=== PATIENT | female | born 1965 ===

== ENCOUNTER 2023-07-02 13:11 | Outpatient (AMB) | payer BC, SELFPAY ==
[2023-07-02 13:12] VITALS: BP 122/86; BMI 23.6
--- NOTE | 2023-07-02 13:12 | A.OFFPC_ITS ---
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 Care Specialist Required: No Allergies No Known Allergies Allergy (Verified 07/02/23 13:12) Medication List - Last Reconciled 07/02/23 by Adi Keating MD calcium carbonate (Calcium) 600 mg PO DAILY guselkumab (Tremfya) 100 mg subcut Q8W multivitamin 1 tab PO DAILY paroxetine HCl 40 mg PO DAILY Tobacco use date assessed: 07/02/23 Dental Screening Dental Screen Date: 07/02/23 Did you have a dental visit in the last 12 months?: Yes Did you have a dental problem in the last 6 months where you did not have access to dental care?: No Was dental information given to patient?: Patient has dentist HPI 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 Patient is requesting physical exam. occ lightheaded, occ sob, intermittent chest pain- 6 months ache - lasting day. worse on stress- , no problem with walking or activity but does get sob on stairs, no radiation , occ heart burn, , [facility] declined any blood work for now. [facility] Surgical History (Updated 07/02/23 @ 13:26 by Adi Keating MD) S/P tonsillectomy Previous section Family History (Updated 07/02/23 @ 13:26 by Adi Keating MD) Brother Heart attack Father Heart attack Social History (Updated 07/02/23 @ 13:30 by Adi Keating MD) Housing: Apartment Alcohol intake: current Comment: QD 3-6 drinks a day Patient Tobacco Use Status: Never used Tobacco service: No Current occupational status: employed Cognitive needs: No Hearing needs: No Vision needs: No Questionnaire PHQ-9 Over the last 2 weeks, how often have you been bothered by any of the following problems? 1. Little interest or pleasure in doing things: several days 2. Feeling down, depressed, or hopeless: several days 3. Trouble falling or staying asleep, or sleeping too much: several days 4. Feeling tired or having little energy: several days 5. Poor appetite or overeating: not at all 6. Feeling bad about yourself - or that you are a failure or have let yourself or your family down: several days 7. Trouble concentrating on things, such as reading the newspaper or watching television: several days 8. Moving or speaking so slowly that other people could have noticed. Or the opposite - being so fidgety or restless that you have been moving around a lot more than usual: not at all 9. Thoughts that you would be better off or of hurting yourself in some way: not at all Total score: 6 Depression Screening Interpretation: Positive Depression Screening Done: Yes Source: Developed by Drs. Gamaliel Ahmadi, Christina Emanuel, Stephen Woodard and colleagues, with an educational rashaun from [employer]. Thrive Questionnaire Date Thrive assessed: 07/02/23 I am a: Patient What is your living situation today?: I have a steady place to live Within the past 12 months, did the food you bought not last and you didn't have the money to get more?: Never true Within the past 12 months, did you worry whether your food would run out before you got money to buy more?: Never true Do you have trouble paying for medicines?: No Do you have trouble getting transportation to medical appointments?: No Do you have trouble paying your heating and electricity bill?: No Do you have trouble taking care of your child, family member or friend?: No Do you have trouble with day-to-day activities such as bathing, preparing meals, shopping, managing finances, etc.?: No Are you currently unemployed and looking for a job?: No Are you interested in more education?: No AUDIT C Alcohol Use Questionnaire (AUDIT-C) 1. How often do you have a drink containing alcohol?: 4 or more times a week 2. How many drinks containing alcohol do you have on a typical day when you are drinking?: 1 or 2 3. How often do you have six or more drinks on one occasion?: Never Total Score: 4 MERY-7 AMB Questionnaire MERY-7 Date MERY - 7 assessed: 07/02/23 Feeling nervous, anxious, or on edge: 1 = Several days Not being able to stop or control worryin = Several days Worrying too much about different things: 1 = Several days Trouble relaxin = Several days Being so restless that it is hard to sit still: 0 = Not at all Becoming easily annoyed or irritable: 0 = Not at all Feeling afraid as if something awful might happen: 0 = Not at all Total MERY-7 score (0-4 normal; 5-9 mild; 10-14 moderate; 15-21 severe): 4 Source: Developed by Drs. Gamaliel Ahmadi, Christina Emanuel, Stephen Woodard and colleagues, with an educational rashaun from [employer]. Review of Systems Const Denies poor appetite and Denies weakness Eyes Denies no additional complaints ENT Reports Normal hearing present, Denies dizziness, Denies nasal congestion, Denies tinnitus and Denies sore throat Card Denies chest pain, Denies syncope, Denies rapid heart rate and Denies dyspnea Resp Denies cough and Denies dyspnea GI Denies change in stool character, Reports constipation, Denies diarrhea, Denies nausea and Denies vomiting Denies urinary frequency, Denies difficulty voiding and Denies dysuria Neuro Reports Normal hearing present, Denies confusion, Denies dizziness, Denies syncope and Denies weakness Psych Denies confusion Physical exam (Primary Care) Vital Signs: Last Vital Signs BP 122/86 07/02/23 13:12 Oxygen Delivery Method Room Air 07/02/23 13:12 BMI result Body Mass Index 23.6 Tobacco/Smoking Status: Tobacco use Status Tobacco use date assessed 07/02/23 07/02/23 13:13 Patient Tobacco Use Status Never used Tobacco 07/02/23 13:30 PHQ-9: PHQ-9 Score PHQ-9: Total score 6 07/02/23 18:34 Depression Screening Interpretation: Positive Thrive Assessment: Date of Thrive Assessment Date Thrive assessed 07/02/23 07/02/23 13:13 Const General: No confusion Orientation/consciousness: No confusion HENMT Head: Yes normocephalic Ears: external ears normal and TM's normal bilaterally Face and sinus: Yes normal facial exam Mouth: moist mucous membranes Throat: Yes tonsils normal Eyes Conjunctivae: conjunctivae normal Pupils: Equal, round and reactive pupils present and Pupil accommodation reflex normal Direct Ophthalmoscopy: normal light reflex Neck Neck: No lymphadenopathy Thyroid: Thyroid normal Chest Chest palpation & inspection: normal inspection of the chest Resp Effort & Inspection: normal respiratory effort and no audible wheezes Auscultation: clear to auscultation bilaterally, no crackles, no wheezes and lung sounds not diminished Cardio Rate: regular rate Rhythm: regular rhythm Peripheral pulses: radial pulses present and dorsalis pedis present GI Palpation (GI): no masses Auscultation: normal bowel sounds and normoactive bowel sounds Rectal Exam - Female: deferred Skin General skin exam: no rashes or lesions noted Rashes: no rashes Neuro General: No confusion Cranial nerves: Yes Equal, round and reactive pupils present and Yes Normal hearing present Cognition (Neuro): normal cognition Gait exam (Neuro): Normal gait present Motor exam (neuro): 5/5 motor strength present throughout Deep tendon reflexes (DTR's): Right brachioradialis reflex intensity grade: 2+, Left brachioradialis reflex intensity grade: 2+, Right patellar reflex intensity grade: 2+ and Left patellar reflex intensity grade: 2+ Extrem General: No edema Assessment and Plan Assessment & Plan (1) Annual physical exam: Code(s): Z00.00 - Encounter for general adult medical examination without abnormal findings (2) Generalized anxiety disorder: Code(s): F41.1 - Generalized anxiety disorder Plan: Continue with present medication and will refer for counseling (3) Psoriasis: Comment: Sunitha Code(s): L40.9 - Psoriasis, unspecified Plan: Patient follows up with Dermatology (4) Irritable bowel syndrome: Comment: diarrhea Code(s): K58.9 - Irritable bowel syndrome without diarrhea Plan: Keep well hydrated, fiber important (5) Breast cancer screening by mammogram: Code(s): Z12.31 - Encounter for screening mammogram for malignant neoplasm of breast Plan: Mammogram requested (6) Colon cancer screening: Code(s): Z12.11 - Encounter for screening for malignant neoplasm of colon Plan: Cologuard requested (7) Chest pain: Code(s): R07.9 - Chest pain, unspecified Plan: Because of the family history will work up the patient. Orders: Orders MM tomosynthesis screening BI Today Z12.31 - Encounter for screening mammogram for malignant neoplasm of breast CA stress test Today R07.9 - Chest pain, unspecified XR chest 2V Today R07.9 - Chest pain, unspecified ECG 12 lead EKG Today R07.9 - Chest pain, unspecified Referrals Psychiatry Referral F41.1 - Generalized anxiety disorder Cologuard Test Z12.11 - Encounter for screening for malignant neoplasm of colon Medications: New paroxetine HCl 40 mg PO DAILY 90 tabs 1RF F41.1 - Generalized anxiety disorder Coding Level of Care Code New Pt Prev Care 40-64y(48568) Diagnoses Annual physical exam Z00.00 Generalized anxiety disorder F41.1 Psoriasis L40.9 Irritable bowel syndrome K58.9 Breast cancer screening by mammogram Z12.31 Colon cancer screening Z12.11 Chest pain R07.9
== END 2023-07-02 13:49 | disposition home or self-care (01) ==
PROVIDERS: PCP Nurse Practitioner Family; Visit Provider Internal Medicine
DX: Z00.00 Encounter for general adult medical examination without abnormal findings (principal); F41.1 Generalized anxiety disorder; L40.9 Psoriasis, unspecified; K58.9 Irritable bowel syndrome, unspecified; Z12.31 Encounter for screening mammogram for malignant neoplasm of breast; Z12.11 Encounter for screening for malignant neoplasm of colon; R07.9 Chest pain, unspecified
CPT/HCPCS: 99386

== ENCOUNTER → 2023-08-17 08:30 | Outpatient (REF) | payer BC, SELFPAY ==
--- NOTE | 2023-08-17 08:36 | ECG_ITS ---
Test Reason : cp Blood Pressure : / mmHG Vent. Rate : 063 BPM Atrial Rate : 063 BPM P-R Int : 144 ms QRS Dur : 078 ms QT Int : 412 ms P-R-T Axes : 043 022 023 degrees QTc Int : 421 ms Normal sinus rhythm Normal ECG No previous ECGs available Referred By: Adi Keating Electronically Signed By:Jaquan Richard
--- NOTE | 2023-08-17 08:36 | CA_ITS ---
Acquisition Time: 2023-08-17 09:24:42 Total Exercise Time: 00:08:44 Test Indications: CP, SOB Medications: SEE H Protocol: JABIER Max HR: 139 BPM 86% of Pred: 161 BPM Max BP: 166/070 mmHG Max Work Load: 10.1 METS Exercise stress test exercise 8 min 44 sec of Jabier protocol achieving 86% MPHR, with mild to moderate SOB, 3/10 chest ache, without arrhythmias, with normotensive response to exercise, without EKG chnages. Chest ache resolved withj rest. Test reviewed with Dr. Richard Referred By: Adi Keating Overread By: Mervat Bonilla
== END ==
LOC: HO.CARD 08:30
PROVIDERS: PCP Internal Medicine; Visit Provider Internal Medicine
DX: R07.9 Chest pain, unspecified (principal)
CPT/HCPCS: 93005; 93017

== ENCOUNTER → 2023-08-17 08:36 | Outpatient (BNV) | payer BC, SELFPAY | PROVIDERS: PCP Internal Medicine; Visit Provider Nurse Practitioner | DX: R07.9 Chest pain, unspecified (principal); R06.02 Shortness of breath | CPT/HCPCS: 93010; 93016; 93018 ==

== ENCOUNTER 2023-09-28 17:24 | Outpatient (AMB) | payer BC, SELFPAY ==
[2023-09-28 17:28] VITALS: BP 152/90; BMI 23.9
--- NOTE | 2023-09-28 17:28 | MHC.PC.OV ---
Vital Signs 09/28/23 17:28 Height 5 ft 3 in Weight 135 lb BMI 23.9 BP 152/90 H Blood Pressure Location Lt brachial Position Sitting Intake Visit Reasons: 3 Month F/U Intake Note: Patient here for a 3 month follow up Disaster Recovery Analyst Required: No Accompanied by: Self / Same As Patient Allergies No Known Allergies Allergy (Verified 09/28/23 17:30) Tobacco use date assessed: 09/28/23 Dental Screening Dental Screen Date: 09/28/23 Did you have a dental visit in the last 12 months?: Yes Did you have a dental problem in the last 6 months where you did not have access to dental care?: No Was dental information given to patient?: Patient has dentist HPI 3 Month F/U HPI Details 58-year-old female with a history of generalized anxiety disorder psoriasis irritable bowel syndrome last seen in June 2023. Patient complained of chest pain and workup was requested. Meanwhile Cologuard as well as mammogram requested also. ECG was normal and stress test without arrhythmias with normotensive response to exercise without EKG changes. Patient has plans of going to [place] and has bought a house there already and planned summer move. Otherwise patient has been doing fine with no nausea no vomiting no chest pains no shortness a breath no bowel bladder symptoms. [facility] Surgical History (Updated 07/02/23 @ 13:26 by Aid Keating MD) S/P tonsillectomy Previous section Family History (Updated 09/28/23 @ 17:31 by Jaleesa Graham Rosanne) Brother Heart attack Father Heart attack Social History (Updated 07/02/23 @ 13:30 by Adi Keating MD) Housing: Apartment Alcohol intake: current Comment: QD 3-6 drinks a day Patient Tobacco Use Status: Never used Tobacco service: No Current occupational status: employed Cognitive needs: No Hearing needs: No Vision needs: No Questionnaire PHQ-9 Over the last 2 weeks, how often have you been bothered by any of the following problems? 1. Little interest or pleasure in doing things: not at all 2. Feeling down, depressed, or hopeless: not at all 3. Trouble falling or staying asleep, or sleeping too much: not at all 4. Feeling tired or having little energy: not at all 5. Poor appetite or overeating: not at all 6. Feeling bad about yourself - or that you are a failure or have let yourself or your family down: not at all 7. Trouble concentrating on things, such as reading the newspaper or watching television: not at all 8. Moving or speaking so slowly that other people could have noticed. Or the opposite - being so fidgety or restless that you have been moving around a lot more than usual: not at all 9. Thoughts that you would be better off or of hurting yourself in some way: not at all Total score: 0 Source: Developed by Drs. Gamaliel Ahmadi, Christina Emanuel, Stephen Woodard and colleagues, with an educational rashaun from [employer]. Thrive Questionnaire Date Thrive assessed: 09/28/23 I am a: Patient What is your living situation today?: I have a steady place to live Within the past 12 months, did the food you bought not last and you didn't have the money to get more?: Never true Within the past 12 months, did you worry whether your food would run out before you got money to buy more?: Never true Do you have trouble paying for medicines?: No Do you have trouble getting transportation to medical appointments?: No Do you have trouble paying your heating and electricity bill?: No Do you have trouble taking care of your child, family member or friend?: No Do you have trouble with day-to-day activities such as bathing, preparing meals, shopping, managing finances, etc.?: No Are you currently unemployed and looking for a job?: No Are you interested in more education?: No Please select the resources that you would like help with: None Currently or been in a relationship where the following occur: no concerns reported THRIVE Score: 0 AUDIT C Alcohol Use Questionnaire (AUDIT-C) 1. How often do you have a drink containing alcohol?: 4 or more times a week 2. How many drinks containing alcohol do you have on a typical day when you are drinking?: 1 or 2 3. How often do you have six or more drinks on one occasion?: Never Total Score: 4 MERY-7 AMB Questionnaire MERY-7 Date MERY - 7 assessed: 09/28/23 Feeling nervous, anxious, or on edge: 1 = Several days Not being able to stop or control worryin = Not at all Worrying too much about different things: 1 = Several days Trouble relaxin = Not at all Being so restless that it is hard to sit still: 0 = Not at all Becoming easily annoyed or irritable: 0 = Not at all Feeling afraid as if something awful might happen: 0 = Not at all Total MERY-7 score (0-4 normal; 5-9 mild; 10-14 moderate; 15-21 severe): 2 Source: Developed by Drs. Gamaliel Ahmadi, Christina Emanuel, Stephen Woodard and colleagues, with an educational rashaun from [employer]. Physical exam (Primary Care) BMI result Body Mass Index 23.9 Tobacco/Smoking Status: Tobacco use Status Tobacco use date assessed 07/02/23 07/02/23 13:13 Patient Tobacco Use Status Never used Tobacco 07/02/23 13:30 Thrive Assessment: Date of Thrive Assessment Date Thrive assessed 07/02/23 07/02/23 13:13 Currently or been in a relationship where the following occur: no concerns reported Const General: alert; No acute distress Eyes Conjunctivae: conjunctivae normal Resp Auscultation: clear to auscultation bilaterally Cardio Rate: regular rate Rhythm: regular rhythm GI Inspection: Yes normal to inspection Extrem General: Yes normal to inspection and No edema Assessment and Plan Assessment & Plan (1) Chest pain: Code(s): R07.9 - Chest pain, unspecified Plan: Stress test as well as EKG workup negative. Reassurance (2) Breast cancer screening by mammogram: Code(s): Z12.31 - Encounter for screening mammogram for malignant neoplasm of breast Plan: Reminded about mammogram (3) Colon cancer screening: Code(s): Z12.11 - Encounter for screening for malignant neoplasm of colon Plan: Reminded about the Cologuard testing (4) Psoriasis: Comment: Sunitha Code(s): L40.9 - Psoriasis, unspecified Plan: Continue to follow-up with dermatology. (5) Generalized anxiety disorder: Code(s): F41.1 - Generalized anxiety disorder Plan: Continue with present medication. Discussed about blood work to be done. Orders: Orders Comprehensive Met. Panel Today R07.9 - Chest pain, unspecified Free T4 (Free Thyroxine) Today R07.9 - Chest pain, unspecified Thyroid Stimulating Hormone Today R07.9 - Chest pain, unspecified Lipid Panel Today E78.00 - Pure hypercholesterolemia, unspecified, R07.9 - Chest pain, unspecified Complete Blood Count Auto Diff Today R07.9 - Chest pain, unspecified Vitamin B12 and Folate Today R07.9 - Chest pain, unspecified Vitamin D 25-OH Total Today R07.9 - Chest pain, unspecified Coding Level of Care Code Est Pt Level 4 (09969) Diagnoses Chest pain R07.9 Breast cancer screening by mammogram Z12.31 Colon cancer screening Z12.11 Psoriasis L40.9 Generalized anxiety disorder F41.1
== END 2023-09-28 17:52 | disposition home or self-care (01) ==
PROVIDERS: PCP Nurse Practitioner Family; Visit Provider Internal Medicine
DX: R07.9 Chest pain, unspecified (principal); Z12.31 Encounter for screening mammogram for malignant neoplasm of breast; Z12.11 Encounter for screening for malignant neoplasm of colon; L40.9 Psoriasis, unspecified; F41.1 Generalized anxiety disorder
CPT/HCPCS: 99214